=== PATIENT | female | born 1985 | race Two or more races ===

== ENCOUNTER 2019-03-25 00:21 | Emergency (ER) | payer SELFPAY ==
[~2019-03-25] VITALS: Ht 160 cm; Wt 59.0 kg
[~2019-03-25 00:21] MED LIST: ACETAMINOPHEN650 MG PR; AUGMENTIN TAB875 MG PO; ERYTHROMYCIN3.5 GM LEFT EYE; FLEXERIL5 MG PO; IBUPROFEN400 MG PO; IBUPROFEN600 MG ORAL; IBUPROFEN600 MG PO; KEFLEX500 MG ORAL; LEVAQUIN500 MG ORAL; NORCO 5-325 TA1 EACH PO; TYLENOL500 MG PO; VICODIN 5-3001 EACH ORAL
--- NOTE | 2019-03-25 00:58 | NUR ---
ED Nurse Note: Pt fall and twisted L foot 2 hours ago. Pt is AO x 4times, VSS, on room air no distress. Pt is current on wheel chair can't walk. ERMD seen Pt at bedside.
[2019-03-25] MEDS ORDERED: Tylenol #3 tab (300mg/30mg) PO ONE (01:15)
--- NOTE | 2019-03-25 01:30 | NUR ---
ED Nurse Note: X ray at bedside.
--- NOTE | 2019-03-25 02:50 | Diagnostic Imaging Report ---
EXAM: XR Left Ankle Complete, 3 or More Views CLINICAL HISTORY: PAIN TECHNIQUE: Frontal, lateral and oblique views of the left ankle. COMPARISON: No relevant prior studies available. FINDINGS: Bones/joints: Unremarkable. No acute fracture. No dislocation. Soft tissues: Moderate soft tissue swelling about the lateral ankle. IMPRESSION: No acute bony abnormality. Moderate soft tissue swelling laterally
--- NOTE | 2019-03-25 02:54 | Diagnostic Imaging Report ---
EXAM: XR Left Foot Complete, 3 or More Views CLINICAL HISTORY: PAIN TECHNIQUE: Frontal, lateral and oblique views of the left foot. COMPARISON: No relevant prior studies available. FINDINGS: Bones/joints: Small accessory ossicle adjacent to the base of the cuboid. No acute fracture. No dislocation. Soft tissues: Unremarkable. No radiopaque foreign body. IMPRESSION: No acute bony abnormality.
[2019-03-25] MEDS ORDERED: IBUPROFEN600 MG ORAL (03:57)
--- NOTE | 2019-03-25 03:57 | NUR ---
ED Nurse Note: Gabe wrap applied
--- NOTE | 2019-03-25 04:00 | NUR ---
ED Nurse Note: Provide crutches and education how to use it. Pt understood and show back to nurse.
--- NOTE | 2019-03-25 04:03 | NUR ---
ER DISCHARGE NOTE: Patient is cleared to be discharged per ERMD, pt is aox4, on room air, with stable vital signs. pt was given dc and prescription instructions, pt was able to verbalize understanding, pt id band removed without complications. pt is able to ambulate with steady gait with son. pt took all belongings.
[2019-03-25 04:04] VITALS: BP 133/72
--- NOTE | 2019-03-25 07:00 | Emergency Room Report ---
History of Present Illness General Chief Complaint: Lower Extremity Injury Source: Patient Present Illness HPI 33-year-old female presents ED for evaluation. Patient complaining of left ankle pain and swelling. States that jumped from chair to the ground tonight and in the process rolled her left ankle. States pain is throbbing, 9 out of 10 , nonradiating. Is unable to bear weight. Denies any other injuries. No other aggravating or relieving factors. Denies any other associated symptoms Allergies: Coded Allergies: No Known Allergies (Unverified , 08/16/12) Patient History Past Medical History: none Past Surgical History: none Pertinent Family History: none Social History: Denies: smoking, alcohol use, drug use Last Menstrual Period: Feb 19 2019 Now: No Immunizations: UTD Reviewed Nursing Documentation: PMH: Agreed; PSxH: Agreed Nursing Documentation-PMH Past Medical History: No Stated History Review of Systems All Other Systems: negative except mentioned in HPI Physical Exam Vital Signs Date Time Temp Pulse Resp B/P (MAP) Pulse Ox O2 Delivery O2 Flow Rate FiO2 03/25/19 00:54 97.9 73 18 127/62 (83) 95 Room Air Sp02 EP Interpretation: reviewed, normal General Appearance: no apparent distress, alert, GCS 15, non-toxic Head: normocephalic Eyes: bilateral eye normal inspection, bilateral eye PERRL ENT: normal ENT inspection Neck: normal inspection Respiratory: normal inspection Cardiovascular #1: normal inspection Gastrointestinal: normal inspection Rectal: deferred Genitourinary: no CVA tenderness Musculoskeletal: swelling - L ankle Neurologic: alert, oriented x3, responsive, motor strength/tone normal, sensory intact, speech normal Psychiatric: normal inspection Skin: normal color Lymphatic: normal inspection Procedures Splinting Splinting : Consent: Verbal Pre-Made Type: JESSY wrap Pre-Proc Neuro Vasc Exam: normal Post-Proc Neuro Vasc Exam: normal Patient Tolerated: Well Complications: None Medical Decision Making Diagnostic Impression: Primary Impression: Ankle sprain Qualified Codes: S93.402A - Sprain of unspecified ligament of left ankle, initial encounter ER Course Hospital Course 33-year-old F presents to ED complaining of L ankle pain/swelling Differential diagnoses include: Fracture, dislocation, sprain, contusion Clinical course Patient placed on stretcher. After initial history and physical, I ordered pain medications and Xrays of L foot/ankle Xrays read shows no acute fracture/dislocation. placed in jessy wrap, given crutches Findings with patient. Safe for discharge for close outpatient follow-up. Recommend ice, NSAIDs, elevation, modified activity. Will provide Ortho referrals Diagnosis - ankle sprain Stable and discharged to home with prescription for Motrin. apply ice, keep elevated. weight bear as tolerated. Followup with PMD/ortho. Return to ED if symptoms recur or worsen Other X-Ray Diagnostic Results Other X-Ray Diagnostic Results #1: X-Ray ordered: L ankle # of Views/Limited Vs Complete: 3 View Indication: Pain EP Interpretation: Yes Interpretation: no dislocation, no fractures Impression: No acute disease Electronically Signed by: Electronically signed by Kelton Burton MD Other X-Ray Diagnostic Results #2: X-Ray ordered: L foot # of Views/Limited Vs Complete: 3 View Indication: Pain EP Interpretation: Yes Interpretation: no dislocation, no soft tissue swelling, no fractures Impression: No acute disease Electronically Signed by: Electronically signed by Kelton Burton MD Last Vital Signs Date Time Temp Pulse Resp B/P (MAP) Pulse Ox O2 Delivery O2 Flow Rate FiO2 03/25/19 04:04 98.1 77 18 133/72 98 Room Air Status: improved Disposition: HOME, SELF-CARE Condition: Stable Scripts Ibuprofen* (MOTRIN*) 600 Mg Tablet 600 MG ORAL Q8H PRN for For Pain, #30 TAB 0 Refills Prov: Kelton Burton MD 03/25/19 Referrals: NOT CHOSEN [facility]/,REFERRING (PCP) [facility] Open 24 hour /7 days a week by Appointment Only [address] [facility] [address] Patient Instructions: Ankle Sprain Kelton Burton MD Mar 25, 2019 07:00
== END 2019-03-25 04:07 | disposition home or self-care (01) ==
LOC: EMR 01:30
DX: S93.402A Sprain of unspecified ligament of left ankle, initial encounter (principal); Y93.39 Activity, other involving climbing, rappelling and jumping off
CPT/HCPCS: 99284

== ENCOUNTER 2020-04-02 21:51 | Emergency (ER) | payer SELFPAY ==
[~2020-04-02] VITALS: Ht 160 cm; Wt 67.1 kg
[2020-04-02 22:16] VITALS: BP 121/70
--- NOTE | 2020-04-02 22:52 | Diagnostic Imaging Report ---
EXAM: CT Head Without Intravenous Contrast CLINICAL HISTORY: H/A TECHNIQUE: Axial computed tomography images of the head/brain without intravenous contrast. CTDI is 53 mGy and DLP is 927 mGy-cm. One or more of the following dose reduction techniques were used: automated exposure control, adjustment of the mA and/or kV according to patient size, use of iterative reconstruction technique. COMPARISON: 11/08/2012 FINDINGS: Brain: No hemorrhage, extra-axial fluid collection, mass effect, or edema. Ventricles: Unremarkable. Bones/joints: Unremarkable. Soft tissues: Unremarkable. Sinuses: Unremarkable as visualized. Mastoid air cells: Unremarkable as visualized. IMPRESSION: 1. No acute intracranial abnormality.
--- NOTE | 2020-04-02 22:56 | Diagnostic Imaging Report ---
EXAM: CT Cervical Spine Without Intravenous Contrast CLINICAL HISTORY: H/A TECHNIQUE: Axial computed tomography images of the cervical spine without intravenous contrast. CTDI is 53 mGy and DLP is 927 mGy-cm. One or more of the following dose reduction techniques were used: automated exposure control, adjustment of the mA and/or kV according to patient size, use of iterative reconstruction technique. COMPARISON: No relevant prior studies available. FINDINGS: Vertebrae: Unremarkable. No acute fracture. Soft tissues: Unremarkable. IMPRESSION: No fracture within the cervical spine.
[2020-04-02] MEDS ORDERED: ROBAXIN-750750 MG PO (23:05)
[2020-04-02] MEDS ORDERED: TYLENOL EXTRA500 MG ORAL (23:05)
[2020-04-02] MEDS ORDERED: LIDODERM700 M1 TOPIC (23:05)
[2020-04-02 23:11] VITALS: BP 119/71
--- NOTE | 2020-04-03 00:15 | Emergency Room Report ---
History of Present Illness General Chief Complaint: Multiple Trauma/Fall Source: Patient Present Illness HPI 34-year-old female presents the ED complaining of headache and neck pain status post fall. States on Wednesday she had a slip and fall hitting her head. Denies LOC. Complaining of dizziness and headache and neck pain. Throbbing, 6 out of 10, nonradiating. Denies photophobia or blurry vision. No other aggravating relieving factors. Denies any other associated symptoms Allergies: Coded Allergies: No Known Allergies (Unverified , 08/16/12) COVID-19 Screening Contact w/high risk pt: No Recent Travel to affected area: No Experienced COVID-19 symptoms?: No COVID-19 Testing performed ZINC FURNACE CHARGER: No Patient History Past Medical History: none Past Surgical History: none Pertinent Family History: none Social History: Denies: smoking, alcohol use, drug use Last Menstrual Period: 04/02 Now: No Immunizations: UTD Reviewed Nursing Documentation: PMH: Agreed; PSxH: Agreed Nursing Documentation-PMH Past Medical History: No Stated History Review of Systems All Other Systems: negative except mentioned in HPI Physical Exam Vital Signs Date Time Temp Pulse Resp B/P (MAP) Pulse Ox O2 Delivery O2 Flow Rate FiO2 04/02/20 21:58 98.4 73 18 143/68 (93) 98 Room Air Sp02 EP Interpretation: reviewed, normal General Appearance: no apparent distress, alert, GCS 15, non-toxic Head: normocephalic, other - Tender to palpation posterior scalp Eyes: bilateral eye normal inspection, bilateral eye PERRL ENT: hearing grossly normal, normal pharynx, no angioedema, normal voice Neck: full range of motion, supple/symm/no masses, tender midline Respiratory: chest non-tender, lungs clear, normal breath sounds, speaking full sentences Cardiovascular #1: regular rate, rhythm, no edema Cardiovascular #2: 2+ carotid (R), 2+ carotid (L), 2+ radial (R), 2+ radial (L) , 2+ dorsalis pedis (R), 2+ dorsalis pedis (L) Gastrointestinal: normal bowel sounds, non tender, soft, non-distended, no guarding, no rebound Rectal: deferred Genitourinary: normal inspection, no CVA tenderness Musculoskeletal: back normal, normal range of motion, gait/station normal, non- tender Neurologic: alert, motor strength/tone normal, oriented x3, sensory intact, responsive, speech normal Psychiatric: judgement/insight normal, memory normal, mood/affect normal, no suicidal/homicidal ideation Reflexes: 3+ bicep (R), 3+ bicep (L), 3+ tricep (R), 3+ tricep (L), 3+ knee (R) , 3+ knee (L) Skin: no rash Lymphatic: no adenopathy Medical Decision Making Diagnostic Impression: Primary Impression: Head injury Qualified Codes: S09.90XA - Unspecified injury of head, initial encounter ER Course Hospital Course 34-year-old female presents with headache and neck pain status post fall Differential diagnoses include: skull fx, intracranial injury, concussion Clinical course Patient placed on stretcher. After initial history and physical I ordered CT head, CT C-spine. Patient declined pain meds CT head and CT C-spine shows no acute process. I discussed findings with patient. Reassurance given. Safe for discharge with close outpatient follow-up. Diagnosis - head injury Stable and discharged to home with Rx Tylenol, Robaxin, Lidoderm. Followup with PMD. Return to ED if symptoms recur or worsen CT/MRI/US Diagnostic Results CT/MRI/US Diagnostic Results #1: Imaging Test Ordered: CT head Impression TECHNIQUE: Axial computed tomography images of the head/brain without intravenous contrast. CTDI is 53 mGy and DLP is 927 mGy-cm. One or more of the following dose reduction techniques were used: automated exposure control, adjustment of the mA and/or kV according to patient size, use of iterative reconstruction technique. COMPARISON: 11/08/2012 FINDINGS: Brain: No hemorrhage, extra-axial fluid collection, mass effect, or edema. Ventricles: Unremarkable. Bones/joints: Unremarkable. Soft tissues: Unremarkable. Sinuses: Unremarkable as visualized. Mastoid air cells: Unremarkable as visualized. IMPRESSION: 1. No acute intracranial abnormality. CT/MRI/US Diagnostic Results #2: Imaging Test Ordered: CT C-spine Impression Procedure: CT C Spine no Contrast EXAM: CT Cervical Spine Without Intravenous Contrast CLINICAL HISTORY: H/A TECHNIQUE: Axial computed tomography images of the cervical spine without intravenous contrast. CTDI is 53 mGy and DLP is 927 mGy-cm. One or more of the following dose reduction techniques were used: automated exposure control, adjustment of the mA and/or kV according to patient size, use of iterative reconstruction technique. COMPARISON: No relevant prior studies available. FINDINGS: Vertebrae: Unremarkable. No acute fracture. Soft tissues: Unremarkable. IMPRESSION: No fracture within the cervical spine. Last Vital Signs Date Time Temp Pulse Resp B/P (MAP) Pulse Ox O2 Delivery O2 Flow Rate FiO2 04/02/20 23:11 98.2 65 16 119/71 100 Room Air Status: improved Disposition: HOME, SELF-CARE Condition: Stable Scripts Lidocaine Patch* (Lidoderm Patch*) 1 Each Adh..patch 1 PATCH TOPIC DAILY, #7 PATCH 0 Refills Patch(es) may remain in place for up to 12 hours in any 24-hour period. Prov: Kelton Burton MD 04/02/20 Methocarbamol* (ROBAXIN-750*) 750 Mg Tablet 750 MG PO TID, #21 TAB 0 Refills Prov: Kelton Burton MD 04/02/20 Acetaminophen* (TYLENOL EXTRA STRENGTH*) 500 Mg Tablet 500 MG ORAL Q8H PRN for Prn Headache/Temp > 101, #30 TAB 0 Refills Prov: Kelton Burton MD 04/02/20 Referrals: NOT CHOSEN IPA/,REFERRING (PCP) [facility] Patient Instructions: Head Injury, Adult, [id number] Kelton Burton MD Apr 03, 2020 00:15
== END 2020-04-02 23:11 | disposition home or self-care (01) ==
LOC: EMR 22:23
DX: S09.90XA Unspecified injury of head, initial encounter (principal); M54.2 Cervicalgia; W01.0XXA Fall on same level from slipping, tripping and stumbling without subsequent striking against object, initial encounter; Y92.9 Unspecified place or not applicable
CPT/HCPCS: 70450; 72125; 99284